=== PATIENT | male | born 1990 | race Caucasian/White ===

== ENCOUNTER 2025-08-22 19:41 | Emergency (ER) | payer OTHER, SELFPAY ==
--- OUTSIDE RECORDS SUMMARY | 2025-08-22 19:43 | XMS_ITS | Clinical Summary ---
Author Organization [facility] Address [facility] [place] [address] Care Team Providers Care Boring Machine Set Up Operator Jig Name Role Phone Marika Van MD Primary Care Provider + [phone] Allergies No known active allergies Medications mupirocin (BACTROBAN) 2 % ointment 09/24/2023 Active triamcinolone (KENALOG) 0.1 % cream 09/24/2023 Active IBUPROFEN OR Active Cholecalciferol (VITAMIN D-3 OR) Act bobo Active Problems No known active problems Family History Medical History Relation Comments Lung Cancer Father Skin cancer Father Diabetes Maternal Grandmother Stroke Maternal Grandmother Breast Cancer Mother Hypertension Mother alcohol use disorder Mother Colon Cancer Neg Hx Prostate Cancer Neg Hx Relation Status Comments Father Maternal Grandmother Mother Social History Tobacco Use Types Packs/Day Years Used Date Smoking Tobacco: Former Cigarettes 1 16 1 6 - 2011 Passive Smoke Exposure: Past Smokeless Tobacco: Never Tobacco Cessation:Counseling Given: No Comments:Still smokes e-ciggs Alcohol Use Standard Drinks/Week Comments Yes 0 (1 standard drink = 0.6 oz pur e alcohol) 3-4 times week. 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 Gender Identity Not on file Sexual Orientation Not on file Last Filed Vital Signs Vital Sign Reading Time Taken Comments Blood Pressure 108/72 10/09/2023 9:16 AM C SOFTWARE ENGINEER Pulse 90 10/09/2023 9:16 AM C SOFTWARE ENGINEER Temperature 36.6 C (97.9 F) 10/09/2023 9:16 AM C SOFTWARE ENGINEER Respiratory Rate 14 10/09/2023 9:16 AM C SOFTWARE ENGINEER Oxygen Saturation 97% 10/09/2023 9:16 AM C SOFTWARE ENGINEER Inhaled Oxygen Concentration - - Weight 79.1 kg (174 lb 6.4 oz) 10/09/2023 9:16 A M C SOFTWARE ENGINEER Height 170.2 cm (5' 7) 10/09/2023 9:16 AM C SOFTWARE ENGINEER Body Mass Index 27.31 10/09/2023 9:16 AM C SOFTWARE ENGINEER Plan of Treatment Health Maintenance Due Date Last Done Comments Hepatitis C 2010 DTaP, Tdap and Td Vaccines ( 1 - Tdap) 2011 Hepatitis B Vaccines (1 of 3 - 19+ 3-dose series) 2011 HPV Vaccines (1 - 3-dose SCD M series) 2019 Annual Physical 10/09/2024 10/09/2023 PHQ-2 (Physician [place]) 11/04/2024 06/11/2024 COVID-19 Vaccine ( - 2024- 6 season) 2025 11/01/2021, 04/26/2021, 04/04/2021 Influenza Adult (#1) 2025 Hepatitis A Vaccines Aged Out No long er eligible based on patient's age to complete this topic Meningococcal B Vaccine Aged Out No l onger eligible based on patient's age to complete this topic Meningococcal Vaccine Aged Out No jacob shaunna eligible based on patient's age to complete this topic Pneumococcal Vaccine: Pediatrics (0 to 5 Years) and At-Risk Patients (6 to 49 Years) Aged Out No longer eligible b ased on patient's age to complete this topic RSV Immunizations Under 20 Months Aged Out No longer eligible b ased on patient's age to complete this topic Insurance [employer] Care Teams Boring Machine Set Up Operator Jig Relationship Specialty Start Date End Date Marika Van MD [address] [facility] [address] [place] [address] PCP - General FAMILY PRACTICE 10/09/23
[2025-08-22 19:53] VITALS: BP 112/69; PULSE 105; RESP 17; TEMP 36.6; O2SAT 100
[2025-08-22 20:19] LABS: Strep Group A RT-PCR NOT DETECTED (Negative)
[2025-08-22 20:30] LABS: Influenza A QL RT-PCR Negative (Negative); Influenza B QL RT-PCR Negative (Negative); RSV RNA, RT-PCR Negative (Negative); SARS-CoV-2 RNA PCR Negative (Negative)
[2025-08-22 20:50] VITALS: BP 95/57; PULSE 81; RESP 20; TEMP 36.8; O2SAT 99
[2025-08-22 21:45] VITALS: BP 110/60; PULSE 98; RESP 28; TEMP 37; O2SAT 100
--- NOTE | 2025-08-23 09:16 | ED.FEVER ---
HPI - Fever General Chief Complaint: Fever Stated Complaint: fever, body aches x1week Time Seen by Provider: 08/22/25 20:54 History of Present Illness HPI Narrative: 35-year-old male presenting with viral syndromes including diffuse myalgias, fever and chills. No sore throat or headache. Has sick contacts that he we sent went on a trip with with the exact same symptoms. Friends did test positive for strep but patient denies any symptoms of this. Symptoms going on a week and responsive to Tylenol at home. No other interventions given so far. No history of antibiotic use recently. Related Data Allergies Allergy/AdvReac Type Severity Reaction Status Date / Time No Known Allergies Allergy Verified 05/29/22 08:51 Review of Systems Review of Systems: As reviewed above in HPI [facility] Social History Social History Smoking status: Former smoker Smoking end date: 05/01/22 Exam Narrative: GENERAL: [Well-appearing, well-nourished, and in no acute distress.] HEAD: [Normocephalic, atraumatic.] EYES: [PERRLA and EOMI.] ENT: Nares clear, no rhinorrhea or epistaxis. Mucous membranes moist. NECK: Supple. CHEST: [Clear to auscultation. No respiratory distress.] HEART: [Regular rate and rhythm]. No murmur heard. [Normal peripheral pulses.] ABDOMEN: [Soft, nondistended], [nontender], [No rigidity or guarding] EXTREMITIES: Normal range of motion. [No edema.] SKIN: Warm, dry, no rash. NEURO: [No focal deficits]. Alert and oriented [x3.] PSYCH: [Normal mood and affect.] Course Vital Signs Vital signs: Vital Signs Temperature 36.6 C 08/22/25 19:53 Pulse Rate 105 H 08/22/25 19:53 Respiratory Rate 17 08/22/25 19:53 Blood Pressure 112/69 08/22/25 19:53 Pulse Oximetry 100 08/22/25 19:53 Oxygen Delivery Room Air 08/22/25 19:53 Temperature 37.0 C 08/22/25 21:45 Pulse Rate 98 08/22/25 21:45 Respiratory Rate 28 H 08/22/25 21:45 Blood Pressure 110/60 08/22/25 21:45 Pulse Oximetry 100 08/22/25 21:45 Oxygen Delivery Room Air 08/22/25 19:53 MDM - Fever MDM Narrative Medical decision making narrative: 35-year-old male presenting with viral syndromes including diffuse myalgias, fever and chills. No sore throat or headache. Has sick contacts that he we sent went on a trip with with the exact same symptoms. Friends did test positive for strep but patient denies any symptoms of this. Symptoms going on a week and responsive to Tylenol at home. No other interventions given so far. No history of antibiotic use recently. Patient has an unremarkable physical examination. No fever. Given patient's duration of symptoms responsive to anti-inflammatories he was started on a Medrol Dosepak and safely discharged home after negative swabs for COVID flu RSV and strep. Medical Records Attestation: I reviewed the patient's medical records. Lab Data Attestation: I reviewed the patient's lab results. Labs: Lab Results 08/22/25 Range/Units 19:48 Influenza A (RT-PCR) Negative (Negative) Influenza B (RT-PCR) Negative (Negative) RSV (RT-PCR) Negative (Negative) SARS-CoV-2 RNA (RT-PCR) Negative (Negative) Group A Strep (PCR) Not detected (Negative) Discharge Plan Discharge Clinical Impression: Acute viral syndrome Patient Disposition: Home Condition: Stable Instructions: Antibiotic Form, Viral Syndrome (ED) Additional Instructions: Symptoms consistent with acute viral syndrome. Negative for COVID flu RSV and strep testing. We have prescribed you a steroid pack to take to help with your symptoms in addition to continue taking ibuprofen and also Tylenol every 6-8 hours for symptom control. Symptoms usually last 10-14 days. Return with any emergencies otherwise follow-up with regular doctor. Patient Language: Burmese Prescriptions: New methylprednisolone [Medrol (Margarito)] 4 mg tablets,dose pack See Rx Instructions .ROUTE .COMPLEX Qty: 21 0RF Rx Instructions: orally per package directions Follow-up/Referrals: Carlota,Marika Webber MD [Primary Care Provider, Unknown] Time of Disposition: 22:03
== END 2025-08-22 22:35 | disposition home or self-care (01) ==
PROVIDERS: Emergency Provider Student in an Organized Health Care Education/Training Program; PCP Family Medicine
DX: B34.9 Viral infection, unspecified (principal); Z20.822 Contact with and (suspected) exposure to COVID-19; Z87.891 Personal history of nicotine dependence
CPT/HCPCS: 87637; 87651; 99283; A9270